=== PATIENT | female | born 1995 | race Caucasian/White ===

== ENCOUNTER 2019-07-14 23:55 | Outpatient (CLI) | payer OTHER ==
[2019-07-15 01:47] VITALS: BP 120/68; PULSE 83; RESP 16; TEMP 98.4
--- NOTE | 2019-08-04 10:30 | P.MSEPDOC ---
Presenting Problems - Arrival Data Date of Arrival on Unit: 07/14/19 Time of Arrival on Unit: 23:35 Mode of Transport: Ambulatory - Complaint OB-Reason for Admission/Chief Complaint: Vaginal Bleeding Comment: pt presents to triage per wheel chair with complaints of vaginal bleeding after. intercourse 1 hour ago. states after intercourse noted blood smeared on legs and sheets. cleaned it up and no further since. underware worn to hospital clean/dry. denies any. bleeding prior or prob with preg Medical History - Information : 2 Para: 1 Term: 1 : 0 Abortions: Spontaneous or Elective: 0 Number of Living Children: 1 - Gestational Age Gestational Age by YOUSIF (wks/days): 30 Weeks and 2 Days Review of Systems - Review of Systems Constitutional: No problems Breast: No problems ENT: No problems Cardiovascular: No problems Respiratory: No problems Gastrointestinal: No problems Genitourinary: No problems Musculoskeletal: No problems Neurological: No problems Skin: No problems Vital Signs - Temperature Temperature: 98.4 F Temperature Source: Oral - Pulse Right Pulse Rate: 83 Pulse Assessment Method: Automatic Cuff - Respirations Respiratory Rate: 16 Oxygen Delivery Method: Room Air O2 Sat by Pulse Oximetry: 97 - Blood Pressure Right Arm Blood Pressure: 120/68 Blood Pressure Mean: 85 Blood Pressure Source: Automatic Cuff Medical Screen Scoring (Pre) - Cervical Exam Dilation: 0 cm = 0 Membranes: Intact - Uterine Contractions Frequency: N/A Duration: N/A Intensity: N/A - Maternal Vital Signs Maternal Temperature: N/A Maternal Blood Pressure: N/A Signs of Preeclampsia: N/A Maternal Respirations: N/A - Maternal Trauma Maternal Trauma: N/A - Assessment - Baby A Baseline FHR: 130 Heart Rate - NICHD Category: Category I (Normal) = 0 NST: Reactive Position: N/A Station: N/A - Total Score - Baby A Total Score - Baby A: 0 - Total Score - Baby B Total Score - Baby B: 0 - Total Score - Baby C Total Score - Baby C: 0 - Level of Risk - Baby A Level of Risk - Baby A: Low (0-5) - Level of Risk - Baby B Level of Risk - Baby B: Low (0-5) - Level of Risk - Baby C Level of Risk - Baby C: Low (0-5) - Pain Assessment Pain Scale Used: Numeric (1 - 10) Pain Intensity: 0 Physician Notification (Pre) - Physician Notified Physician Notified Date: 07/15/19 Physician Notified Time: 00:30 Physician/Practitioner Notifed:: Dr Washington Spoke With: Dr Washington - Notification Comment Comment: 0030 Dr Washington updated with pts reason for visit of vaginal bleeding after intercourse. cat 1 status. reactive NST. no cramping or furtherbleeding since admit. orders for vag exam received. Dr Washington called back with vag exam closed cervix. dark bleeding noted on glove. and trickled out of vagina onto bed in 3 inch [place]ak after exam. order for discahrge, pelvic rest, pt to follow up with Dr Mancia this week received Disposition - Disposition OB Disposition: Discharge to home Discharge Date: 07/15/19 Discharge Time: 00:45 I agree with the RN Medical Screening Exam: Yes Risk & Benefit of care provided described in d/c instruction: Yes Diagnosis: OTHER SPECIFIED COMPLICATIONS OF LABOR AND DELIVERY
== END 2019-07-15 00:45 | disposition home or self-care (01) ==
LOC: FBPOP 23:55
PROVIDERS: ATTEND Obstetrics & Gynecology Obstetrics
DX: O75.89 Other specified complications of labor and delivery (principal); Z3A.30 30 weeks gestation of pregnancy
CPT/HCPCS: 59025; 99213

== ENCOUNTER 2019-09-18 06:05 | Inpatient (IN) | payer OTHER ==
[2019-09-18] MEDS ORDERED: TERBUTALINE 1 MG/ML VIAL SQ PRN (06:20)
[2019-09-18] MEDS ORDERED: LIDOCAINE 0.5% (PF) 5 MG/ML (50 ML SDV) SQ PRN (06:20)
[2019-09-18] MEDS ORDERED: OXYTOCIN 10 UNIT/ML 1 ML VIAL IM PRN (06:20)
[2019-09-18] MEDS ORDERED: CARBOPROST TROMETHAMINE 250 MCG/ML 1 ML AMP IM PRN (06:20)
[2019-09-18] MEDS ORDERED: METHYLERGONOVINE 0.2 MG/ML 1 ML AMP IM PRN (06:20)
[2019-09-18 06:29] LABS: Basophils % (A) 0 %; Eosinophils # (A) 0.1 k/uL (0-0.7); Eosinophils % (A) 1 %; HCT 33.4 % (34.0-46.0); HGB 11.4 gm/dL (11.4-16.0); Lymphocytes # (A) 1.4 k/uL (1.0-4.8); Lymphocytes % (A) 25 %; MCH 32.6 pg (25.0-35.0); MCV 95.7 fL (80.0-100.0); Mean Platelet Volume 6.7; Monocytes # (A) 0.2 k/uL (0-1.0); Monocytes % (A) 4 %; Neutrophils # (A) 3.9 k/uL (1.3-7.7); Neutrophils % (A) 68 %; Platelet Count 191 k/uL (150-450); RDW 14.4 % (11.5-15.5); WBC 5.7 k/uL (3.8-10.6)
[2019-09-18] MEDS ORDERED: OXYTOCIN 30 UNITS/500 ML NS 30 UNIT in SALINE 1 500ML.BAG IV SCH (06:30)
[2019-09-18] MEDS: LACTATED RINGERS 1,000 ML IV SCH ×3 (06:43→15:45)
--- NOTE | 2019-09-18 07:42 | P.HPOB ---
History of Present Illness H&P Date: 09/18/19 This is a 24-year-old white female 2 para 1001 EDC 09/21/2019 at 39-4/7 weeks' gestation. Patient presents today for induction with favorable multiparous cervix. Fetus is been active throughout the . She denies fluid leakage or vaginal bleeding. Past medical history is essentially negative. Past surgical history significant for colposcopy. Current medications vitamins daily. ALLERGIES none known. Family history significant for hypertension. Social history patient is single, she is a former tobacco smoker, she denies alcohol or drug use. Obstetric history significant for 8 lbs. 10 oz. vaginal delivery 2010, female , uncomplicated. history: blood type is O+, rubella status nonimmune. VDRL testing, urine culture, gonorrhea and chlamydia cultures, hepatitis B surface antigen, HIV testing all negative. One-hour Glucola 89. Group B strep cultures negative. On exam she is 5 foot 7 inches, 181 pounds, vital signs are stable including blood pressure 131/63, patient is afebrile. General physical exam is within normal limits. Cervix is 4 cm dilated, 80% effaced, -2 station, vertex presentation. Artificial amniorrhexis reveals clear fluid. heart tone tracing is consistent with reactive NST. Impression: 39-4/7 weeks intrauterine , here for elective induction of labor, all signs reassuring. Plan: Close maternal and surveillance. Oxytocin per hospital protocol. Analgesic options have been reviewed. Anticipate normal spontaneous vaginal delivery. Review of Systems Constitutional: Reports as per HPI Past Medical History Past Medical History: No Reported History History of Any Multi-Drug Resistant Organisms: None Reported Additional Past Surgical History / Comment(s): Skin cancer removed in 2012 Past Anesthesia/Blood Transfusion Reactions: No Reported Reaction Past Psychological History: Anxiety Smoking Status: Never smoker Past Alcohol Use History: None Reported Past Drug Use History: None Reported - Past Family History Father Family Medical History: Cancer, Diabetes Mellitus Additional Family Medical History / Comment(s): lymphoma Medications and Allergies Home Medications Medication Instructions Recorded Confirmed Type Pnv No.95/Ferrous Fum/Folic AC 1 each PO DAILY 09/18/19 09/18/19 History [ Multivitamin Tablet] Allergies Allergy/AdvReac Type Severity Reaction Status Date / Time No Known Allergies Allergy Verified 09/18/19 06:19 Exam Vital Signs Temp Pulse Resp BP Pulse Ox 09/18/19 06:31 98.5 F 96 16 131/63 98 Intake and Output 09/17/19 09/18/19 09/18/19 22:59 06:59 14:59 Other: Weight 82.1 kg See dictation under HPI please Results Result Diagrams: 09/18/19 06:20 Abnormal Lab Results - Last 24 Hours (Table) 09/18/19 Range/Units 06:20 RBC 3.50 L (3.80-5.40) m/uL Hct 33.4 L (34.0-46.0) % Assessment and Plan Assessment: 39-4/7 weeks intrauterine , here for elective induction of labor. Plan: Oxytocin per hospital protocol. Close maternal and surveillance. Analge sic options have been reviewed with the patient. Anticipate normal spontaneous vaginal delivery. Time with Patient: Less than 30
[2019-09-18] MEDS ORDERED: ROPIVACAINE 5MG/ML 20ML VIAL ONE (14:13)
[2019-09-18] MEDS ORDERED: SODIUM CHLORIDE 0.9% 100 ML BAG ONE (14:13)
[2019-09-18] MEDS ORDERED: fentaNYL (PF) 50 MCG/ML 5 ML AMP ONE (14:13)
[2019-09-18] MEDS ORDERED: ROPIVACAINE 100 MG, fentaNYL (PF) 200 MCG in SODIUM CHLORIDE 0.9% 76 ML EPIDURAL ONE (14:29)
[2019-09-18] MEDS ORDERED: BENZOCAINE/MENTHOL SPRAY 1 GM/SPRAY AEROSOL TOPICAL PRN (17:17)
[2019-09-18] MEDS ORDERED: HYDROCORTISONE 2.5% RECTAL CREAM 30 GM TUBE RECTAL PRN (17:17)
[2019-09-18] MEDS ORDERED: diphenhydrAMINE 25 MG CAP PO PRN (17:17)
[2019-09-18] MEDS ORDERED: LANOLIN CREAM 5 GM TUBE TOPICAL PRN (17:17)
[2019-09-18] MEDS ORDERED: WITCH HAZEL 1 EACH MED..PAD TOPICAL PRN (17:17)
[2019-09-18] MEDS ORDERED: ACETAMINOPHEN TAB 325 MG TAB PO PRN (17:17)
[2019-09-18] MEDS ORDERED: SIMETHICONE 80 MG CHEWABLE PO PRN (17:17)
[2019-09-18] MEDS ORDERED: ZOLPIDEM 5 MG TAB PO PRN (17:17)
[2019-09-18] MEDS ORDERED: diphenhydrAMINE 50 MG CAP PO PRN (17:17)
[2019-09-18] MEDS ORDERED: diphenhydrAMINE 50 MG/ML 1 ML VIAL IVP PRN ×2 (17:17)
--- NOTE | 2019-09-18 17:17 | P.PROBDLV ---
Vaginal Delivery Note - . Vaginal Delivery Note: This is a 24 rolled white female 2 para 1001 EDC 09/21/2019 at 39-4/7 weeks' gestation. Patient presented for induction with favorable multiparous cervix. is unremarkable, group B strep cultures negative, rubella status nonimmune. Blood type O positive. Please see dictated history and physical for details. Artificial amniorrhexis revealed very clear light green fluid. heart tones were reassuring throughout first and second stages of labor. Epidural was placed ultimately per her request. Oxytocin was titrated per hospital protocol. Patient was judged to be completely dilated at 1644 hrs. and began the second stage of labor at that time. She pushed well in the dorsal lithotomy position. Perineal body was prepped and draped in usual sterile fashion. Infant's head delivered occiput anterior and she restituted accordingly. There was no nuchal cord noted. The right or anterior shoulder was delivered easily from underneath the pubic symphysis at which time the oropharynx, nasopharynx, and external nares were bulb suctioned on the perineal body. Patient was officially delivered of a liveborn female infant at 1658 hours. Umbilical cord was doubly clamped and ligated, she was handed to waiting nurses for evaluation where scores of 8 and 9 at one and 5 minutes respectively were given. Placenta delivered spontaneously, it was inspected and noted to be intact with trivascular cord at 10/22/2003 hours. Fundus is massaged. Uterus is firm. Inspection of the cervix, vagina, perineum, periurethral, and perirectal areas revealed no lacerations and no defects. Fundus is firm and in the midline, symmetric and 18 week size upon completion of delivery. Total estimated blood loss 400 mL's. weight 8 lbs. 1 oz. or 3665 g. Patient and her are allowed to begin the bonding experience in the LDR.
[2019-09-18] MEDS ORDERED: OXYTOCIN 20 UNITS/1000 ML NS 1,000 ML IV SCH (17:30)
[2019-09-18] MEDS: SENNOSIDES-DOCUSATE SODIUM 1 EACH TAB PO SCH (20:03)
[2019-09-19] MEDS ORDERED: MEASLES-MUMPS-RUBELLA VACC/PF 12,500 UNIT/0.5 ML VIAL SQ ONE (00:23)
[2019-09-19] MEDS: IBUPROFEN 600 MG TAB PO PRN ×3 (01:38→12:13)
[2019-09-19] MEDS: SENNOSIDES-DOCUSATE SODIUM 1 EACH TAB PO SCH (07:25)
[2019-09-19 07:44] LABS: Basophils % (A) 0 %; Eosinophils # (A) 0.1 k/uL (0-0.7); Eosinophils % (A) 1 %; HCT 28.8 % (34.0-46.0); Lymphocytes # (A) 1.2 k/uL (1.0-4.8); Lymphocytes % (A) 21 %; MCH 32.5 pg (25.0-35.0); MCHC 33.4 g/dL (31.0-37.0); MCV 97.2 fL (80.0-100.0); Monocytes # (A) 0.3 k/uL (0-1.0); Monocytes % (A) 5 %; Neutrophils # (A) 4.4 k/uL (1.3-7.7); Neutrophils % (A) 72 %; Platelet Count 139 k/uL (150-450); RBC 2.96 m/uL (3.80-5.40); RDW 14.7 % (11.5-15.5)
[2019-09-19 07:48] LABS: HGB 9.6 gm/dL (11.4-16.0)
--- NOTE | 2019-09-19 07:55 | P.DS ---
Providers Date of admission: 09/18/19 06:05 Expected date of discharge: 09/19/19 Attending physician: Cindy Mancia Primary care physician: Stated None Hospital Course: This is a 24 rolled white female 2 para 1001 EDC 09/21/2019 at 39-4/7 weeks' gestation. Patient presented yesterday for induction with favorable multiparous cervix. Fetus is been active throughout the . Rubella status nonimmune, blood type O+, group B strep cultures negative. Please see my dictated history and physical for details. Patient received an epidural and oxytocin augmentation per hospital protocol. She went on to deliver vaginally a liveborn female infant with scores of 8 and 9 at one and 5 minutes respectively. Infant weighed 8 lbs. 1 oz. or 3665 g. Estimated blood loss was recorded at 400 mL's. Perineal body was clean and dry. Please see dictated delivery note for details. This morning the patient appears healthy and well. She is voiding, ambulate in, passing flatus without difficulty. Breast-feeding is going well. Patient's vital signs are stable and she has remained afebrile. She is judged to be in very good condition for discharge home. She will follow-up with me in the office in 6 weeks. I have reminded her no intercourse, tampons or douching. She will use [id number] Advil or Aleve, or Motrin as needed for pain. She will call with any fevers shakes or chills, foul smelling or copious lochia, with the passage of large blood clots, with any pain not alleviated by [id number] products, or indeed with any concerns. Goodman will follow-up with executive steward as per recommendations. Contraceptive options have been discussed and we will review this further in the office. Assessment: Doing well day #1 Patient Condition at Discharge: Good Plan - Discharge Summary New Discharge Prescriptions: No Action Pnv No.95/Ferrous Fum/Folic AC [ Multivitamin Tablet] 1 each PO DAILY Discharge Medication List Pnv No.95/Ferrous Fum/Folic AC [ Multivitamin Tablet] 1 each PO DAILY 09/18/19 [History] Follow up Appointment(s)/Referral(s): Cindy Mancia MD [STAFF PHYSICIAN] - 6 Weeks Discharge Disposition: HOME SELF-CARE
[2019-09-19 10:05] VITALS: BP 117/74; PULSE 94; RESP 18; TEMP 98
== END 2019-09-19 17:58 | disposition home or self-care (01) | DRG 807 ==
LOC: 4FBP 06:05
PROVIDERS: ADMIT Obstetrics & Gynecology; ATTEND Obstetrics & Gynecology
PROC: 10E0XZZ Delivery of Products of Conception, External Approach (ICD-10-PCS; principal; 2019-09-18)
DX: O99.344 Other mental disorders complicating childbirth (principal); Z37.0 Single live birth; Z3A.39 39 weeks gestation of pregnancy; F41.9 Anxiety disorder, unspecified; Z80.7 Family history of other malignant neoplasms of lymphoid, hematopoietic and related tissues; Z82.49 Family history of ischemic heart disease and other diseases of the circulatory system; Z83.3 Family history of diabetes mellitus; Z85.828 Personal history of other malignant neoplasm of skin; Z87.891 Personal history of nicotine dependence
CPT/HCPCS: 85025; 86850; 86900; 86901; 90707